=== PATIENT | female | born 1945 | race Caucasian/White ===

== ENCOUNTER 2017-04-28 07:56 | Outpatient (CLI) | payer OTHER | END 2017-04-28 08:02 | disposition home or self-care (01) | LOC: NUCLEAR 07:56 | DX: G30.0 Alzheimer's disease with early onset (principal) | CPT/HCPCS: 78814; A9552 ==

== ENCOUNTER → 2017-11-25 11:08 | Outpatient (CLI) | payer OTHER | END | disposition home or self-care (01) | LOC: LAB 11:08 | DX: G31.84 Mild cognitive impairment of uncertain or unknown etiology (principal); Z51.81 Encounter for therapeutic drug level monitoring ==

== ENCOUNTER 2017-11-30 09:50 | Outpatient (CLI) | payer OTHER | END 2017-11-30 12:10 | disposition home or self-care (01) | LOC: MRI 09:50 | DX: G31.84 Mild cognitive impairment of uncertain or unknown etiology (principal); F41.8 Other specified anxiety disorders | CPT/HCPCS: 70553; A9579 ==

== ENCOUNTER 2018-02-10 12:25 | Outpatient (CLI) | payer OTHER | END 2018-02-10 13:08 | disposition home or self-care (01) | LOC: RAD 12:25 | DX: M54.2 Cervicalgia (principal); M54.6 Pain in thoracic spine ==

== ENCOUNTER 2020-12-11 09:39 | Outpatient (CLI) | payer OTHER | END 2020-12-11 09:53 | disposition home or self-care (01) | LOC: SONOGRAMA 09:39 → MAMO-SONO 10:00 | PROVIDERS: ATTEND Surgery | DX: N60.11 Diffuse cystic mastopathy of right breast (principal); N60.12 Diffuse cystic mastopathy of left breast ==

== ENCOUNTER 2021-10-22 10:51 | Outpatient (CLI) | payer OTHER | END 2021-10-22 11:14 | disposition home or self-care (01) | LOC: RAD 10:51 | PROVIDERS: ATTEND Internal Medicine Hematology & Oncology | DX: Z13.6 Encounter for screening for cardiovascular disorders (principal); Z11.1 Encounter for screening for respiratory tuberculosis; C50.211 Malignant neoplasm of upper-inner quadrant of right female breast; N60.11 Diffuse cystic mastopathy of right breast; N60.12 Diffuse cystic mastopathy of left breast ==

== ENCOUNTER 2021-10-22 12:27 | Outpatient (CLI) | payer OTHER | END 2021-10-22 12:32 | disposition home or self-care (01) | LOC: LAB 12:27 | PROVIDERS: ATTEND Internal Medicine Hematology & Oncology | DX: E78.00 Pure hypercholesterolemia, unspecified (principal); Z13.6 Encounter for screening for cardiovascular disorders ==

== ENCOUNTER 2022-11-24 12:35 | Outpatient (CLI) | payer OTHER | END 2022-11-24 12:45 | disposition home or self-care (01) | LOC: SONOGRAMA 12:35 | PROVIDERS: ATTEND Surgery | DX: N60.11 Diffuse cystic mastopathy of right breast (principal); N60.12 Diffuse cystic mastopathy of left breast ==

== ENCOUNTER → 2023-03-29 09:56 | Outpatient (CLI) | payer OTHER ==
[2023-03-29 10:45] LABS: HEMATOCRIT 38.3 % (36.0-45.00); MEAN CORPUSCULAR HEMOGLOBIN 30.7 pg (27.00-32.0); MEAN CORPUSCULAR HGB CONC 34.1 g/dl (32.0-36.0); PLATELET COUNT 293 K/uL (150-450); RED BLOOD COUNT 4.25 M/uL (4.00-6.00); RED CELL DISTRIBUTION WIDTH 14.6 % (11.5-14.5)
[2023-03-29 11:16] LABS: MYCOPLASMA PNEUMONIAE IGM NON REACTIVE (NO REACTIVE)
[2023-03-29 11:32] LABS: BILIRUBIN TOTAL 0.61 mg/dL (0.3-1.2); CALCIUM 9.8 mg/dL (8.5-10.1); CREATININE SERUM 0.86 mg/dL (0.55-1.02); GFR 64.32; GLOBULINA 3.6 G/DL (2.4-3.5); POTASSIUM 5.16 mEq/L (3.5-5.1); TOTAL PROTEIN 7.6 gm/dL (6.4-8.2)
== END | disposition home or self-care (01) ==
LOC: LAB 09:56
PROVIDERS: ATTEND Internal Medicine Hematology & Oncology
DX: U07.1 COVID-19 (principal); J20.0 Acute bronchitis due to Mycoplasma pneumoniae; J21.1 Acute bronchiolitis due to human metapneumovirus; D64.9 Anemia, unspecified; R74.01 Elevation of levels of liver transaminase levels

== ENCOUNTER 2023-03-29 10:32 | Outpatient (CLI) | payer OTHER | END 2023-03-29 10:39 | disposition home or self-care (01) | LOC: RAD 10:32 | PROVIDERS: ATTEND Internal Medicine Hematology & Oncology | DX: J20.0 Acute bronchitis due to Mycoplasma pneumoniae (principal) ==

== ENCOUNTER 2024-01-02 13:39 | Outpatient (CLI) | payer OTHER | END 2024-01-02 13:46 | disposition home or self-care (01) | LOC: SONOGRAMA 13:39 | PROVIDERS: ATTEND Surgery | DX: N60.11 Diffuse cystic mastopathy of right breast (principal); N60.12 Diffuse cystic mastopathy of left breast ==

== ENCOUNTER 2024-12-06 09:01 | Outpatient (CLI) | payer OTHER | END 2024-12-06 09:04 | disposition home or self-care (01) | LOC: SONOGRAMA 09:01 | PROVIDERS: ATTEND Surgery | DX: N60.11 Diffuse cystic mastopathy of right breast (principal); N60.12 Diffuse cystic mastopathy of left breast ==